=== PATIENT | male | born 1980 | race Caucasian/White ===

== ENCOUNTER → 2019-12-24 | Emergency (ER) | payer OTHER ==
[~2019-12-24] VITALS: Ht 185.4 cm; Wt 107.0 kg
[~2019-12-24] MED LIST: ASPIR 8181 MG PO; LIPITOR40 M1 PO
== END | disposition home or self-care (01) ==
LOC: ER 17:37
DX: S05.01XA Injury of conjunctiva and corneal abrasion without foreign body, right eye, initial encounter (principal); W22.8XXA Striking against or struck by other objects, initial encounter; Y93.89 Activity, other specified; Y92.838 Other recreation area as the place of occurrence of the external cause; Y99.8 Other external cause status